=== PATIENT | male | born 1945 | race Hispanic/Latino ===

== ENCOUNTER → 2021-10-10 | Outpatient (CLI) | payer OTHER ==
[~2021-10-10] VITALS: Ht 165.1 cm; Wt 61.7 kg
[~2021-10-10] MED LIST: REGADENOSON 0.4 MG/5 ML PF SYG IVP SCH
== END | disposition home or self-care (01) ==
LOC: SHCH 08:57
PROVIDERS: ATTEND Internal Medicine Cardiovascular Disease
DX: I48.0 Paroxysmal atrial fibrillation (principal); I10 Essential (primary) hypertension; E78.5 Hyperlipidemia, unspecified; I48.21 Permanent atrial fibrillation; Z79.01 Long term (current) use of anticoagulants
CPT/HCPCS: 78452; 93017; 96374; A9500 ×2; J2785

== ENCOUNTER 2023-03-20 15:38 | Day surgery (SDC) | payer OTHER ==
[~2023-03-20] VITALS: Ht 165.1 cm; Wt 59.9 kg
[2023-03-20] MEDS ORDERED: PROPOFOL 10 MG/ML 20ML VIAL IV ONE (16:39)
[2023-03-20 17:00] VITALS: BP 146/71; PULSE 71; RESP 13
[2023-03-20] MEDS ORDERED: PANT20TA18 PO (17:18)
[2023-03-20] MEDS ORDERED: FLUT16H NS (17:18)
[2023-03-20] MEDS ORDERED: LEVO25CA4 PO (17:18)
[2023-03-20] MEDS ORDERED: MELA10CA2 PO (17:18)
[2023-03-20] MEDS ORDERED: LOSA50TA64 PO (17:18)
[2023-03-20] MEDS ORDERED: RIVA20TA PO (17:18)
[2023-03-20] MEDS ORDERED: RIVA4.5C17 PO (17:18)
[2023-03-20] MEDS ORDERED: MEMA10TA55 PO (17:18)
[2023-03-20] MEDS ORDERED: KCIT5T PO (17:18)
[2023-03-20] MEDS ORDERED: SIMV40TA59 PO (17:18)
== END 2023-03-20 19:50 | disposition home or self-care (01) ==
LOC: ENDO 15:38 → DAH 15:38 → ENDO 19:50
PROVIDERS: ATTEND Internal Medicine Gastroenterology
DX: D50.9 Iron deficiency anemia, unspecified (principal); Z20.822 Contact with and (suspected) exposure to COVID-19; R10.30 Lower abdominal pain, unspecified; K64.0 First degree hemorrhoids; K57.30 Diverticulosis of large intestine without perforation or abscess without bleeding; K21.00 Gastro-esophageal reflux disease with esophagitis, without bleeding; K29.50 Unspecified chronic gastritis without bleeding; R63.0 Anorexia; R63.4 Abnormal weight loss; R68.81 Early satiety; I10 Essential (primary) hypertension; G47.33 Obstructive sleep apnea (adult) (pediatric); I48.91 Unspecified atrial fibrillation; E78.5 Hyperlipidemia, unspecified; E03.9 Hypothyroidism, unspecified; G30.9 Alzheimer's disease, unspecified; Z90.89 Acquired absence of other organs; F02.80 Dementia in other diseases classified elsewhere, unspecified severity, without behavioral disturbance, psychotic disturbance, mood disturbance, and anxiety; Z86.010 Personal history of colon polyps; Z90.49 Acquired absence of other specified parts of digestive tract; Z98.890 Other specified postprocedural states; Z72.89 Other problems related to lifestyle; Z87.891 Personal history of nicotine dependence; Z88.8 Allergy status to other drugs, medicaments and biological substances
CPT/HCPCS: 88305; 88312; 43239; 45378; J2704; A4620; A4215 ×2; A4223; A4657 ×3; A7002; A4222; A4221; A4663; A4216; J7030; A4606; J3490